=== PATIENT | male | born 1975 | race Two or more races ===

== ENCOUNTER 2019-10-02 16:06 | Emergency (ER) | payer OTHER ==
[~2019-10-02] VITALS: Ht 175.3 cm; Wt 65.8 kg
[~2019-10-02 16:06] MED LIST: AMARYL; AVANDAMET 1 MG/1 TAB PO; AVELOX ABC PAC400 MG PO; CRESTOR5 MG PO; MEDROL2 MG PO
[2019-10-02] MEDS ORDERED: COZAAR50 MG PO (16:22)
[2019-10-02] MEDS ORDERED: HUMALOG100 UNIT/2 (16:22)
[2019-10-02] MEDS ORDERED: LANTUS SOL100 UNIT/1 (16:22)
[2019-10-02] MEDS ORDERED: NEURONTIN300 MG PO (16:23)
[2019-10-02] MEDS ORDERED: TEGRETOL200 MG PO (16:23)
== END 2019-10-02 18:53 | disposition home or self-care (01) ==
LOC: ER 16:06
DX: K58.8 Other irritable bowel syndrome (principal)

== ENCOUNTER 2023-02-10 06:33 | Inpatient (IN) | payer OTHER ==
[~2023-02-10] VITALS: Ht 152.4 cm; Wt 61.2 kg
[~2023-02-10 06:33] MED LIST changes: +COZAAR50 MG PO; +HUMALOG100 UNIT/2; +LANTUS SOL100 UNIT/1; +NEURONTIN300 MG PO; +TEGRETOL200 MG PO
--- NOTE | 2023-02-10 07:34 | NUR ---
PTE REFIERE QUE TIENE DOLOR EN EL DEDO PULGAR DEL PIES DERECHO EL CUAL SE OBSERVA INCHADO SUPURANDO Y CON HEMATOMA
--- NOTE | 2023-02-10 10:11 | NUR ---
PACIENTE EVALUADO POR DR. SALGADO QUIEN ORDENA TRATAMIENTO, ANOOP GUTIERREZ EDUCA ACERCA DEL MISMO Y REFIERE ENTENDER. SE CANALIZA Y COLECTAN MUESTRAS DE LABORATORIO MEDIANTE MEDIDAS ASEPTICAS. SE ADMINISTRAN MEDICAMENTOS ANA M ORDEN MEDICA
[2023-02-20] MEDS ORDERED: AMLODIPINE BESYL5 MG PO (10:15)
[2023-02-20] MEDS ORDERED: NICOTINE PATCH1 EACH TD (10:15)
[2023-02-20] MEDS ORDERED: INTEGRA PLUS C1 EACH PO (10:15)
[2023-02-20] MEDS ORDERED: LIPITOR40 M1 PO (10:16)
[2023-02-20] MEDS ORDERED: COZAAR50 MG PO (10:16)
[2023-02-20] MEDS ORDERED: TEGRETOL200 MG PO (10:17)
[2023-02-20] MEDS ORDERED: NEURONTIN600 MG PO (10:17)
[2023-02-20] MEDS ORDERED: FAMOTIDINE20 MG PO (10:17)
[2023-02-20] MEDS ORDERED: INSULIN GL100 UNIT/3 SUBCUTANEO (10:19)
[2023-02-20] MEDS ORDERED: ADMELOG100 UNIT/1 SUBCUTANEO (10:22)
[2023-02-20] MEDS ORDERED: LEVOTHYROXINE50 MCG PO (10:22)
[2023-02-20] MEDS ORDERED: METRONIDAZOLE500 MG PO (10:25)
== END 2023-02-20 13:13 | disposition home or self-care (01) | DRG 264 ==
LOC: ER 06:33 → MEDI 20:37
PROVIDERS: Emergency Medicine; General Practice; ADMIT Internal Medicine; ATTEND Internal Medicine
PROC: B44FZZZ Ultrasonography of Right Lower Extremity Arteries (ICD-10-PCS; 2023-02-10)
PROC: BL31ZZZ Magnetic Resonance Imaging (MRI) of Lower Extremity Connective Tissue (ICD-10-PCS; 2023-02-10)
PROC: B54BZZZ Ultrasonography of Right Lower Extremity Veins (ICD-10-PCS; 2023-02-10)
PROC: 0JBQ0ZZ Excision of Right Foot Subcutaneous Tissue and Fascia, Open Approach (ICD-10-PCS; principal; 2023-02-11)
PROC: 0QBQ0ZZ Excision of Right Toe Phalanx, Open Approach (ICD-10-PCS; 2023-02-13)
PROC: 02HV33Z Insertion of Infusion Device into Superior Vena Cava, Percutaneous Approach (ICD-10-PCS; 2023-02-13)
PROC: 0JDQ0ZZ Extraction of Right Foot Subcutaneous Tissue and Fascia, Open Approach (ICD-10-PCS; 2023-02-19)
PROC: BT43ZZZ Ultrasonography of Bilateral Kidneys (ICD-10-PCS; 2023-02-19)
DX: E11.52 Type 2 diabetes mellitus with diabetic peripheral angiopathy with gangrene (principal); I96 Gangrene, not elsewhere classified; L97.518 Non-pressure chronic ulcer of other part of right foot with other specified severity; L02.611 Cutaneous abscess of right foot; M86.171 Other acute osteomyelitis, right ankle and foot; E11.621 Type 2 diabetes mellitus with foot ulcer; E11.65 Type 2 diabetes mellitus with hyperglycemia; D72.820 Lymphocytosis (symptomatic); G50.0 Trigeminal neuralgia; F17.210 Nicotine dependence, cigarettes, uncomplicated; F43.23 Adjustment disorder with mixed anxiety and depressed mood; I10 Essential (primary) hypertension; E03.9 Hypothyroidism, unspecified; Z79.4 Long term (current) use of insulin
CPT/HCPCS: 73725

== ENCOUNTER 2023-03-14 20:37 | Emergency (ER) | payer OTHER ==
[~2023-03-14] VITALS: Ht 175.3 cm; Wt 65.8 kg
[~2023-03-14 20:37] MED LIST changes: +ADMELOG100 UNIT/1 SUBCUTANEO; +AMLODIPINE BESYL5 MG PO; +FAMOTIDINE20 MG PO; +INSULIN GL100 UNIT/3 SUBCUTANEO; +INTEGRA PLUS C1 EACH PO; +LEVOTHYROXINE50 MCG PO; +LIPITOR40 M1 PO; +METRONIDAZOLE500 MG PO; +NEURONTIN600 MG PO; +NICOTINE PATCH1 EACH TD
[2023-03-15 00:22] LABS: URINE APPEARANCE Clear; URINE BILIRRUBIN Negative (NEGATIVE); URINE BLOOD Small; URINE COLOR Yellow; URINE LEUKOCYTE Negative; URINE NITRATE Negative; URINE UROBILINOGEN 0.2 E.U./dl
[2023-03-15 00:24] LABS: HEMATOCRIT 43.5 % (39.0-48.0); HEMOGLOBIN 14.5 g/dL (13-16.00); MEAN CELL VOLUME 85.4 fL (80.0-100.00); MEAN CORPUSCULAR HEMOGLOBIN 28.4 pg (27.00-32.0); MEAN CORPUSCULAR HGB CONC 33.3 g/dl (32.0-36.0); PLATELET COUNT 337 K/uL (150-450); RED BLOOD COUNT 5.09 M/uL (4.00-6.00); RED CELL DISTRIBUTION WIDTH 13.8 % (11.5-14.5)
[2023-03-15 00:25] LABS: URINE RBC 22.7 uL (0.0-20.8)
[2023-03-15 00:27] LABS: URINE GLUCOSE >=1000 MG/DL (NEGATIVE); URINE PROTEIN 100 (NEGATIVE)
[2023-03-15 00:28] LABS: URINE BACTERIA 2.5 uL (0.0-1933); URINE EPITHELIAL CELLS 0.4 uL (0.0-38.8); URINE WBC 1.6 uL (0.0-23.2)
[2023-03-15 00:34] LABS: INR 1.02; PARTIAL THROMBOPLASTIN TIME 26.7 SECONDS (22.0-34.0); PROTHROMBIN TIME 10.7 SECONDS (9.0-11.5)
[2023-03-15 00:36] LABS: ALBUMIN 3.5 gm/dL (3.4-5.0); BILIRUBIN TOTAL 0.18 mg/dL (0.3-1.2); CALCIUM 9.6 mg/dL (8.5-10.1); CREATININE SERUM 0.92 mg/dL (0.70-1.30); GFR 87.44; POTASSIUM 4.1 mEq/L (3.5-5.1); TOTAL PROTEIN 8.5 gm/dL (6.4-8.2)
[2023-03-15 03:03] LABS: ERYTHROCYTE SEDIMENTATION RATE 33 mm/hr
== END 2023-03-15 10:52 | disposition home or self-care (01) ==
LOC: ER 20:37
DX: E11.52 Type 2 diabetes mellitus with diabetic peripheral angiopathy with gangrene (principal); E11.621 Type 2 diabetes mellitus with foot ulcer; L97.519 Non-pressure chronic ulcer of other part of right foot with unspecified severity; E11.65 Type 2 diabetes mellitus with hyperglycemia; Z79.4 Long term (current) use of insulin; D72.829 Elevated white blood cell count, unspecified